=== PATIENT | female | born 2000 | race African-American/Black ===

== ENCOUNTER 2024-08-18 10:30 | Emergency (ER) | payer MEDICAID ==
[~2024-08-18] VITALS: Ht 170.2 cm; Wt 55.0 kg
[2024-08-18 10:45] VITALS: BP 138/81; PULSE 81; RESP 18; TEMP 98.7; O2SAT 100
[2024-08-18] MEDS ORDERED: PSEU-207 MT (11:45)
[2024-08-18] MEDS ORDERED: MOME17SP11 BOTHNSTRLS (11:45)
== END 2024-08-18 12:01 | disposition home or self-care (01) ==
LOC: ER 10:49
DX: J32.9 Chronic sinusitis, unspecified (principal); J02.9 Acute pharyngitis, unspecified; Z79.51 Long term (current) use of inhaled steroids
CPT/HCPCS: 99283

== ENCOUNTER 2025-07-22 18:29 | Emergency (ER) | payer MEDICAID ==
[~2025-07-22] VITALS: Ht 167.6 cm; Wt 52.6 kg
[~2025-07-22 18:29] MED LIST: MOME17SP11 BOTHNSTRLS; PSEU-307 MT
[2025-07-22 18:42] VITALS: O2SAT 99
[2025-07-22 19:10] LABS: CLARITY URINE CLOUDY (CLEAR); COLOR URINE DARK YELLOW (YELLOW); GLUCOSE URINE NEGATIVE (NEGATIVE); KETONES URINE 2+ (NEGATIVE); LEUKOCYTE ESTERASE URINE NEGATIVE (NEGATIVE); NITRITE URINE NEGATIVE (NEGATIVE); OCCULT BLOOD URINE 1+ (NEGATIVE); PH URINE 5.5 (4.5-8.0); PROTEIN URINE 1+ (NEGATIVE); SPECIFIC GRAVITY URINE 1.029 (1.005-1.030); UROBILINOGEN URINE 1.0 E.U./dL (0.2-1.0)
[2025-07-22 19:22] VITALS: BP 108/72; PULSE 74; RESP 16; TEMP 37.9; O2SAT 100
[2025-07-22 19:31] LABS: BACTERIA URINE TRACE; RBC URINE 0-2 /hpf (0-2); SQUAMOUS EPITHELIAL CELL URINE 2+ /lpf (RARE/1+); WBC URINE 0-2 /hpf (0-2)
[2025-07-22 19:43] LABS: BASOPHILS % 0.1 % (0.0-2.0); EOSINOPHILS % 0.0 % (0.0-5.0); HEMATOCRIT. 32.6 % (36.0-48.0); HEMOGLOBIN. 10.1 g/dL (12.0-16.0); LYMPHOCYTES % 8.9 % (20.0-50.0); MEAN PLATELET VOLUME 7.8 fl (7.4-10.4); MONOCYTES % 8.5 % (2.0-8.0); NEUTROPHILS % 82.5 % (40.0-76.0); PLATELET 236 x1000/uL (130-400); RED BLOOD CELL COUNT 4.02 mill/uL (4.2-5.4); RED CELL DISTRIBUTION WIDTH 19.9 % (11.6-14.6)
[2025-07-22 19:58] LABS: CREATININE 0.7 mg/dL (0.6-1.0); UREA NITROGEN BLOOD < 5 mg/dL (9-23)
[2025-07-22 20:00] LABS: ASPARTATE AMINOTRANSFERASE 19 IU/L (<34); BILIRUBIN DIRECT 0.4 mg/dL (<=3.0)
[2025-07-22 20:01] LABS: BILIRUBIN TOTAL 1.2 mg/dL (0.1-1.0); PROTEIN TOTAL 8.2 g/dL (6.0-8.3)
[2025-07-22] MEDS ORDERED: TOPUD MT (21:28)
[2025-07-22] MEDS ORDERED: FAMO-135 MT (21:28)
[2025-07-22] MEDS ORDERED: SODIUM CHLORIDE 0.9% 1,000 ML IV ONE (21:30)
[2025-07-22] MEDS ORDERED: ONDANSETRON HCL 4MG/2ML INJ IV ONE (21:30)
[2025-07-22 21:53] LABS: HCG SCREEN NEGATIVE
[2025-07-22] MEDS: POTASSIUM CHLORIDE 20MEQ TABLET SR PO ONE (22:16)
[2025-07-22] MEDS: ONDANSETRON 4MG ODT PO ONE (22:16)
[2025-07-22] MEDS ORDERED: ONDA4TAB50 MT (22:54)
== END 2025-07-22 23:44 | disposition home or self-care (01) ==
LOC: ER 18:29
DX: B34.9 Viral infection, unspecified (principal); R11.2 Nausea with vomiting, unspecified; R10.9 Unspecified abdominal pain; Z79.51 Long term (current) use of inhaled steroids; Z20.822 Contact with and (suspected) exposure to COVID-19
CPT/HCPCS: 99283; 87426; 80076; 80048; 81003; 81025; 84703; 83690; 85025; 36415; Q0162; J7030